=== PATIENT | female | born 1980 | race Two or more races ===

== ENCOUNTER 2024-05-01 18:13 | Emergency (ER) | payer BC ==
[~2024-05-01] VITALS: Ht 154.9 cm; Wt 64.0 kg
[2024-05-01] MEDS ORDERED: METOCLOPRAMIDE HCL 10 MG/2 ML VIAL ONE (19:03)
[2024-05-01] MEDS ORDERED: KETOROLAC TROMETHAMINE 15 MG/ML VIAL ONE (19:03)
[2024-05-01] MEDS ORDERED: diphenhydrAMINE HCL 50 MG/ML VIAL ONE (19:03)
[2024-05-01] MEDS: METOCLOPRAMIDE HCL 10 MG/2 ML VIAL IV ONE (19:12)
[2024-05-01] MEDS: diphenhydrAMINE HCL 50 MG/ML VIAL IV ONE (19:12)
[2024-05-01] MEDS: KETOROLAC TROMETHAMINE 15 MG/ML VIAL IV ONE (19:13)
[2024-05-01] MEDS: IV NS 0.9% 1,000 ML BAG IV ONE (19:13)
[2024-05-01] MEDS ORDERED: IBUP-1955 PO (20:39)
[2024-05-01 21:10] VITALS: BP 120/86; TEMP 98.7; O2SAT 100
== END 2024-05-01 21:27 | disposition home or self-care (01) ==
LOC: ER 18:39
DX: G43.909 Migraine, unspecified, not intractable, without status migrainosus (principal); R11.2 Nausea with vomiting, unspecified; Z60.2 Problems related to living alone
CPT/HCPCS: 99284; 96374; 96375; 96361; J1200; J2765; J7030; J1885